=== PATIENT | male | born 1940 | race Caucasian/White ===

== ENCOUNTER 2017-07-08 17:12 | Emergency (ER) | payer MEDICARE ==
[~2017-07-08] VITALS: Ht 167.6 cm; Wt 70.0 kg
[~2017-07-08 17:12] MED LIST: ASPI1TAB57 PO; FIBE625T PO; FLEC1TAB9 PO; GABA800T PO; NEXI40CA PO; ZOCO40TA PO
[2017-07-08 17:14] VITALS: BP 165/84; PULSE 74; RESP 16; TEMP 98.5; O2SAT 97
--- NOTE | 2017-07-08 17:43 | PD ---
Physical Exam Date Seen by Provider: Jul 08, 2017 Time Seen by Provider: 17:40 Narrative 77-year-old white male patient of Dr. Novoa presents emergent department at her request. Patient is having diarrhea, weight loss, burning hands and feet. He feels this is a side effect of Cipro. Last dose of Cipro was 2 weeks ago. No abdominal pain Vital signs reviewed. Pt waiting for bed placement. Data Data Last Documented VS Vital Signs Date Time Temp Pulse Resp B/P (MAP) Pulse Ox O2 Delivery O2 Flow Rate FiO2 07/08/17 17:14 98.5 74 16 165/84 (111) 97 Room Air [facility] Medical Record Reviewed: No Supervised Visit with [place]SANA: Jay Anand Jul 08, 2017 17:43
[2017-07-08] MEDS ORDERED: CIPR500T2 PO (19:26)
[2017-07-08] MEDS ORDERED: LEVS0.123 PO (19:26)
[2017-07-08] MEDS ORDERED: TRAM50TA PO (19:26)
[2017-07-08] MEDS ORDERED: SODIUM CHLORIDE 0.9% FLUSH 10 ML FLUSH IVF PRN (20:15)
--- NOTE | 2017-07-08 20:16 | PD ---
HPI Chief Complaint: GI Complaint Time Seen by Provider: 19:24 Travel History International Travel<30 days: No Contact w/Intl Traveler<30days: No Traveled to known affect area: No History of Present Illness HPI Patient is a 77-year-old male presenting to the emergency department for evaluation several medical complaints. Patient presented complaining of burning in his hands and feet which has been ongoing for several weeks. He also reports a dry nonproductive cough, sore throat, intermittent feeling of malaise. He states the symptoms have been ongoing for 3 weeks. Patient reports a 12 pound weight loss over the last week. He does state that he's been attempting to lose weight but not that much. In regards to the burning in his hands and feet patient states he believes is related to the ciprofloxacin that he was prescribed in April, May, June for his diverticulitis. Patient never fully completed a full course of antibiotics as they made him nauseated. Patient states that he was sent here by his GI doctor, Dr. Mccallum. Patient states that he saw his campus administrative assistant for the burning and his ABIs were tested and they were normal per his report. He reports an endoscopy 3 weeks ago and has a colonoscopy scheduled on 07/22/17. Patient states that the burning comes and goes, at its worst his pain is a 7 out of 10. There are no alleviating or exacerbating factors. Patient is on gabapentin currently for chronic back pain. Patient denies abdominal pain, chest pain, shortness of breath, fever, chills. He states that he had 6 loose bowel movements this morning but has had none since that time. Patient 6-year-old grandson lives with them and has been sick recently. PFSH Past Medical History Asthma: No Blood Disorders: No Heart Rhythm Problems: Yes Cancer: Yes (OCULAR MELANOMA LEFT EYE) Cardiac Catheterization: No Cardiovascular Problems: Yes High Cholesterol: No Chest Pain: Yes Congestive Heart Failure: No COPD: No Diabetes: No Gastrointestinal Disorders: Yes (diverticulitis) GERD: Yes Glaucoma: No Hepatitis: No Hiatal Hernia: Yes Hypertension: Yes Medical other: Yes (GERD ;ESOPHAGEAL STRICTURE) Musculoskeletal: Yes Psychiatric: No Thyroid Disease: No Tetanus Vaccination: < 5 Years Influenza Vaccination: No Past Surgical History Abdominal Surgery: Yes (UMBILICAL HERNIA REPAIR WITH MESH) AICD: No Coronary Artery Bypass Graft: No Eye Surgery: Yes (2004 LEFT EYE REMOVED; INSERTION RADIOACTIVE PELLETS AND REMOVAL PELETTS) Pacemaker: No Other Surgery: Yes ( PILONIDAL CYST) Social History Alcohol Use: Yes (SOCIALLY) Tobacco Use: No (former smoker quit 20 years ago) Substance Use: No Allergies-Medications (Allergen,Severity, Reaction): Coded Allergies: Sulfa (Sulfonamide Antibiotics) (Unverified Allergy, Severe, NAUSEA, ) mesalamine (Unverified Allergy, Severe, NAUSEA, 04/22/17) Reported Meds & Prescriptions Reported Meds & Active Scripts Active Reported Ciprofloxacin (Ciprofloxacin HCl) 500 Mg Tab 500 Mg PO BID Levsin (Hyoscyamine Sulfate) 0.125 Mg Tab 0.125 Mg PO Q6H Tramadol (Tramadol HCl) 50 Mg Tab 50 Mg PO Q8H PRN Zocor (Simvastatin) 40 Mg Tab 40 Mg PO DAILY Gabapentin 800 Mg Tab 800 Mg PO BID Flecainide (Flecainide Acetate) 150 Mg Tab 150 Mg PO BID Nexium (Esomeprazole DR) 40 Mg Capdr 40 Mg PO DAILY Aspirin 81 (Aspirin) 81 Mg Tabdr 81 Mg PO DAILY Fibercon (Calcium Polycarbophil) 625 Mg Tab 1,250 Mg PO PRN Review of Systems Except as stated in HPI: all other systems reviewed are Neg General / Constitutional: Positive: Weight Loss, No: Fever, Chills Eyes: No: Visual changes HENT: Positive: Sore Throat, Rhinitis, Congestion, No: Headaches, Lightheadedness, Neck Pain, Earache Cardiovascular: No: Chest Pain or Discomfort, Diaphoresis, Dyspnea on exertion Respiratory: Positive: Cough, No: Shortness of Breath, Wheezing, Pleuritic Pain Gastrointestinal: Positive: Diarrhea (now resolved), No: Nausea, Vomiting, Abdominal Pain Genitourinary: No: Dysuria Musculoskeletal: No: Myalgias Neurologic: Positive: Sensory Disturbance, No: Weakness, Dizziness, Syncope Physical Exam Narrative GENERAL: Well-appearing, well-nourished, alert elderly male. Resting comfortably in no acute distress. SKIN: Warm and dry. HEAD: Atraumatic. Normocephalic. EYES: Pupils equal and round. No scleral icterus. No injection or drainage. ENT: No nasal bleeding or discharge. Mucous membranes pink and moist. Cobblestone appearance to posterior pharynx. NECK: Trachea midline. No JVD. CARDIOVASCULAR: Regular rate and rhythm. 2+ dorsalis pedal pulses bilaterally. RESPIRATORY: No accessory muscle use. Clear to auscultation. Breath sounds equal bilaterally. GASTROINTESTINAL: Abdomen soft, non-tender, nondistended. Hepatic and splenic margins not palpable. MUSCULOSKELETAL: Extremities without clubbing, cyanosis, or edema. No obvious deformities. NEUROLOGICAL: Awake and alert. No obvious cranial nerve deficits. Motor grossly within normal limits. Five out of 5 muscle strength in the arms and legs. Normal speech. PSYCHIATRIC: Appropriate mood and affect; insight and judgment normal. Data Data Last Documented VS Vital Signs Date Time Temp Pulse Resp B/P (MAP) Pulse Ox O2 Delivery O2 Flow Rate FiO2 07/08/17 19:20 18 07/08/17 17:14 98.5 74 165/84 (111) 97 Room Air Orders Orders Complete Blood Count With Diff (07/08/17 20:13) Comprehensive Metabolic Panel (07/08/17 20:13) Chest, Pa & Lat (07/08/17 20:13) Iv Access Insert/Monitor (07/08/17 20:13) Oximetry (07/08/17 20:13) Sodium Chloride 0.9% Flush (Ns Flush) (07/08/17 20:15) Labs Laboratory Tests Test 07/08/17 20:45 White Blood Count 10.1 TH/MM3 Red Blood Count 5.07 MIL/MM3 Hemoglobin 15.4 GM/DL Hematocrit 46.0 % Mean Corpuscular Volume 90.7 FL Mean Corpuscular Hemoglobin 30.3 PG Mean Corpuscular Hemoglobin Concent 33.4 % Red Cell Distribution Width 13.8 % Platelet Count 216 TH/MM3 Mean Platelet Volume 9.9 FL Neutrophils (%) (Auto) 68.1 % Lymphocytes (%) (Auto) 23.1 % Monocytes (%) (Auto) 7.6 % Eosinophils (%) (Auto) 0.7 % Basophils (%) (Auto) 0.5 % Neutrophils # (Auto) 6.9 TH/MM3 Lymphocytes # (Auto) 2.3 TH/MM3 Monocytes # (Auto) 0.8 TH/MM3 Eosinophils # (Auto) 0.1 TH/MM3 Basophils # (Auto) 0.0 TH/MM3 CBC Comment DIFF FINAL Differential Comment Blood Urea Nitrogen 10 MG/DL Creatinine 0.78 MG/DL Random Glucose 86 MG/DL Total Protein 8.8 GM/DL Albumin 4.7 GM/DL Calcium Level 9.6 MG/DL Alkaline Phosphatase 89 U/L Aspartate Amino Transf (AST/SGOT) 14 U/L Alanine Aminotransferase (ALT/SGPT) 26 U/L Total Bilirubin 0.7 MG/DL Sodium Level 134 MEQ/L Potassium Level 3.6 MEQ/L Chloride Level 100 MEQ/L Carbon Dioxide Level 26.1 MEQ/L Anion Gap 8 MEQ/L Estimat Glomerular Filtration Rate 96 ML/MIN MDM Medical Decision Making Medical Screen Exam Complete: Yes Emergency Medical Condition: Yes Interpretation(s) Last Impressions Chest X-Ray 07/08/172012 Signed Impressions: Service Date/Time: Saturday, July 08, 2017 20:22 - CONCLUSION: No acute disease. There is no evidence of pneumonia. Carlos Taylor MD Laboratory Tests Test 07/08/17 20:45 White Blood Count 10.1 TH/MM3 Red Blood Count 5.07 MIL/MM3 Hemoglobin 15.4 GM/DL Hematocrit 46.0 % Mean Corpuscular Volume 90.7 FL Mean Corpuscular Hemoglobin 30.3 PG Mean Corpuscular Hemoglobin Concent 33.4 % Red Cell Distribution Width 13.8 % Platelet Count 216 TH/MM3 Mean Platelet Volume 9.9 FL Neutrophils (%) (Auto) 68.1 % Lymphocytes (%) (Auto) 23.1 % Monocytes (%) (Auto) 7.6 % Eosinophils (%) (Auto) 0.7 % Basophils (%) (Auto) 0.5 % Neutrophils # (Auto) 6.9 TH/MM3 Lymphocytes # (Auto) 2.3 TH/MM3 Monocytes # (Auto) 0.8 TH/MM3 Eosinophils # (Auto) 0.1 TH/MM3 Basophils # (Auto) 0.0 TH/MM3 CBC Comment DIFF FINAL Differential Comment Blood Urea Nitrogen 10 MG/DL Creatinine 0.78 MG/DL Random Glucose 86 MG/DL Total Protein 8.8 GM/DL Albumin 4.7 GM/DL Calcium Level 9.6 MG/DL Alkaline Phosphatase 89 U/L Aspartate Amino Transf (AST/SGOT) 14 U/L Alanine Aminotransferase (ALT/SGPT) 26 U/L Total Bilirubin 0.7 MG/DL Sodium Level 134 MEQ/L Potassium Level 3.6 MEQ/L Chloride Level 100 MEQ/L Carbon Dioxide Level 26.1 MEQ/L Anion Gap 8 MEQ/L Estimat Glomerular Filtration Rate 96 ML/MIN Vital Signs Date Time Temp Pulse Resp B/P (MAP) Pulse Ox O2 Delivery O2 Flow Rate FiO2 07/08/17 19:20 18 07/08/17 17:14 98.5 74 16 165/84 (111) 97 Room Air Differential Diagnosis Peripheral neuropathy versus medication side effect versus viral syndrome versus allergic rhinitis versus bronchitis versus pneumonia versus other Narrative Course Patient is a 77-year-old male presenting with multiple medical complaints. Patient's vital signs are stable. Labs and imaging were ordered and pending to rule out an infectious process. Patient did have a pneumonia 1 month ago. Additionally persistent peripheral neuropathy is a side effect of ciprofloxacin. Discussed with patient, he is encouraged to follow-up with his primary doctor for possible adjustment of his gabapentin to help with symptom management, possible neurology consult for nerve conduction study. Chest x-ray which is read by radiologist shows no acute disease. Labs reviewed, no acute findings identified. Patient was encouraged to schedule an appointment with his primary care provider to discuss his neuropathy. Additionally patient was encouraged to continue symptomatic management in regards to his cold symptoms. Discussed with patient that he may have a component of allergic rhinitis which is causing his throat to feel irritated secondary to postnasal drip. He was strongly encouraged to return to emergency department should the be any new or worsening symptoms. Patient verbalized understanding of these instructions. Patient is stable for discharge. Diagnosis Primary Impression: Peripheral neuropathy Qualified Codes: G62.9 - Polyneuropathy, unspecified Additional Impression: Cold virus Referrals: Asim Crabtree MD 1 day Patient Instructions: Cold Symptoms (ED), General Instructions, Peripheral Neuropathy (ED) Additional Instructions: Follow-up with her primary doctor in 1-2 days Continue previously prescribed home medications Return to emergency department for any new or worsening symptoms Med/Other Pt SpecificInfo: No Change to Meds Disposition: 01 DISCHARGE HOME Condition: Stable Jeri Tejeda Jul 08, 2017 20:16
--- NOTE | 2017-07-08 20:39 | RADRPT ---
EXAM DATE/TIME: 07/08/2017 20:22 [facility] COMPARISON: No previous studies available for comparison. EXTERNAL COMPARISON : [facility] INDICATIONS : Cough. MEDICAL HISTORY : A-fib. SURGICAL HISTORY : None. ENCOUNTER: Initial ACUITY: 1 day PAIN SCORE: 0/10 LOCATION: Bilateral chest FINDINGS: PA and lateral views of the chest demonstrate the lungs to be symmetrically aerated without evidence of mass, infiltrate or effusion. The cardiomediastinal contours are unremarkable. Osseous structure s are intact. CONCLUSION: No acute disease. There is no evidence of pneumonia. Carlos Taylor MD on July 08, 2017 at 20:38 Board Certified Radiologist. This report was verified electronically.
[2017-07-08 21:17] LABS: AUTOMATED NEUTROPHIL # 6.9 TH/MM3 (1.8-7.7); BASOPHIL % 0.5 % (0.0-2.0); EOSINOPHIL # 0.1 TH/MM3 (0-0.4); EOSINOPHIL % 0.7 % (0.0-4.0); HEMO FLAGS DIFF FINAL; LYMPH % 23.1 % (9.0-44.0); LYMPHOCYTE # 2.3 TH/MM3 (1.0-4.8); MEAN CELL VOLUME 90.7 FL (80.0-100.0); MEAN CORPUSCULAR HEMOGLOBIN 30.3 PG (27.0-34.0); MEAN CORPUSCULAR HGB CONC 33.4 % (32.0-36.0); MONO % 7.6 % (0.0-8.0); NEUT % 68.1 % (16.0-70.0); PLATELET COUNT 216 TH/MM3 (150-450); RED BLOOD COUNT 5.07 MIL/MM3 (4.50-5.90); RED CELL DISTRIBUTION WIDTH 13.8 % (11.6-17.2); WHITE BLOOD COUNT 10.1 TH/MM3 (4.0-11.0)
[2017-07-08 21:41] LABS: ALT (GPT) 26 U/L (12-78); ANION GAP 8 MEQ/L (5-15); AST (GOT) 14 U/L (15-37); BICARBONATE 26.1 MEQ/L (21.0-32.0); BLOOD UREA NITROGEN 10 MG/DL (7-18); CHLORIDE 100 MEQ/L (98-107); GLOMERULAR FILTRATION RATE 96 ML/MIN (>89); POTASSIUM 3.6 MEQ/L (3.5-5.1); SODIUM (NA) 134 MEQ/L (136-145)
[2017-07-08 21:44] LABS: ALKALINE PHOSPHATASE 89 U/L (45-117); TOTAL BILIRUBIN ADULT 0.7 MG/DL (0.2-1.0)
[2017-07-08 22:21] VITALS: O2SAT 100
== END 2017-07-08 22:21 | disposition home or self-care (01) ==
LOC: NEPD 17:12
DX: G62.9 Polyneuropathy, unspecified (principal); J00 Acute nasopharyngitis [common cold]; I10 Essential (primary) hypertension; K21.9 Gastro-esophageal reflux disease without esophagitis; Z87.891 Personal history of nicotine dependence
CPT/HCPCS: 71020; 80053; 85025; 99284